=== PATIENT | female | born 1955 | race Caucasian/White ===

== ENCOUNTER 2016-08-01 06:14 | Observation (INO) | payer BC ==
[~2016-08-01] VITALS: Ht 176.5 cm; Wt 91.9 kg
--- NOTE | ~2016-08-01 | OR ---
PATIENT'S NAME: ADRIENNE [facility] AGE: 60 Y [address] ROOM: [address] [address] LOCATION: [facility] ADMIT DATE: 08/01/2016 OR/Procedure Report DISCHARGE DATE: FAMILY PHYSICIAN: Margarito Andrews MD ATTENDING PHYSICIAN: Lisa Farrar SURGEON: Lisa Farrar MD STEEL UNLOADER: Yoli Dean. DATE OF PROCEDURE: 08/01/2016 PREOPERATIVE DIAGNOSIS: Cervical spondylosis with radiculopathy. POSTOPERATIVE DIAGNOSIS: Cervical spondylosis with radiculopathy. PROCEDURES PERFORMED: 1. Anterior cervical diskectomy with decompression of neural elements and foraminotomy at C4-C5. 2. Anterior cervical diskectomy with decompression of neural elements and foraminotomy at C5-C6. 3. Structural allograft and morselized allograft fusion at C4-C5. 4. Structural allograft and morselized allograft fusion at C5-C6. 5. Use of intraoperative microscope. 6. Anterior cervical plating from C4-C6 with Globus plate system. ANESTHESIA: General. ANESTHESIA PROVIDER: Alanna Mustafa M.D. HISTORY: This patient is a 60-year-old female, who presented with neck and right arm pain. Imaging studies showed degenerative disk disease with collapse of disk space at C5-C6 and C4-C5 as well as slight subluxation at C4- C5. Surgery was recommended. The procedure mentioned above along with the benefits and risks were discussed with the patient. With her consent, she was brought to the operating room for surgery. PROCEDURE IN DETAIL: In the operating room, the patient was placed in a supine position. Anesthesia was induced. She was intubated and appropriate support lines were placed. A Gonzalez catheter was inserted. Her head was placed in a gel donut and a roll was placed under her shoulders thereby keeping her neck in slight extension. The incision line was marked out along the anterior border of the sternomastoid muscle. The whole area was then prepped and draped in a sterile fashion. Local anesthesia was infiltrated. A #10 blade was used to open the incision and the platysma was PATIENT'S NAME: ADRIENNE [facility] AGE: 60 Y [address] ROOM: [id number] [place], [place] [id number] LOCATION: [facility] ADMIT DATE: 08/01/2016 OR/Procedure Report DISCHARGE DATE: FAMILY PHYSICIAN: Margarito Andrews MD ATTENDING PHYSICIAN: Lisa Farrar. The anterior border of the sternomastoid muscle became visible. Dissection was continued along the anterior border of the sternomastoid muscle until the omohyoid was visualized. Dissection was then carried out in the space between the omohyoid and sternomastoid muscles, working medial to the internal carotid artery and lateral to the esophagus and trachea until we got to the anterior surface of the cervical spine. The Cloward handheld retractors were used to help visualization as the dissection progressed. The longus colli muscles were dissected off the anterior surface of the spine. The black-belt retractors were then placed with the blades anchored beneath the longus colli muscles that had been dissected off the spine. We could see the anterior osteophytes quite clearly at C4-C5 and C5-C6 corresponding to the severe cervical spondylosis. Intraoperative x-ray was obtained to verify that these levels were correct. Diskectomy was then carried out at both disk spaces. The Leksell rongeur was used to rongeur the anterior osteophytes in order to gain access into the disk space. A 15-blade was then used to incise the disk material and the disk material was pulled out with pituitary rongeur. The C5-C6 disk space was particularly collapsed and some drilling had to be done just to get into the disk space. Distraction pins were placed into C4, C5, and C6 and with these distraction pins, the disk space was opened further. The microscope was brought in at this point and under microscopic vision, diskectomy was deepened until we got to the posterior longitudinal ligament. The posterior longitudinal ligament was opened to expose the dura. The Kerrison rongeur was then used to remove the posterior longitudinal ligament together with posterior osteophytes. There was periodic bleeding from the foraminal areas and this was controlled with fibrillar and cottonoids. Foraminotomy was done bilaterally by removing the osteophytes along the posterior edge of the vertebral body at C4, C5, and C6. I felt we had satisfactory decompression both of the central canal as well as the foramina. Irrigation was used to wash out the debris. The endplates were prepared both at C4-C5 and C5-C6 for bone graft. Appropriate sized allograft bone pieces were then inserted into C4-C5 and C5-C6. These bone graft measured 8 mm in height. Prior to inserting the bone graft, the demineralized bone matrix was placed in the center of the bone grafts. The bone grafts were then inserted and they fit very snugly at both levels. An anterior plate was then used to reinforce the fusion and 2 screws were affixed to C4, C5, and C6. Another x-ray was obtained to confirm that the screws, plates, and grafts were in satisfactory position. Final irrigation PATIENT'S NAME: ADRIENNE [facility] AGE: 60 Y [address] ROOM: [place] [id number] LOCATION: [facility] ADMIT DATE: 08/01/2016 OR/Procedure Report DISCHARGE DATE: FAMILY PHYSICIAN: Margarito Andrews MD ATTENDING PHYSICIAN: Lisa Farrar was carried out. Hemostasis was achieved. The incision was closed in layers using appropriate suture materials. A sterile dressing was applied. The patient's anesthesia was reversed. She was extubated and taken to the recovery room to complete her recovery. I was present at and performed every aspect of this procedure, assisted at some stages by the operating room nurses. There were no apparent intraoperative complications. Swabs, needles, and instruments were all accounted for at the end of the case. Estimated blood loss was less than 150 mL. There was no reason for a blood transfusion. I expect the patient to benefit from this procedure. She will be followed up in the clinic to see how she is doing. LISA FARRAR MD CNO/modl /[id number] d: 08/01/16 2257 t: 08/11/16 1844, OPERATIVE SUMMARY
[~2016-08-01 06:14] MED LIST: AMBIEN5 MG PO; ARMOUR THYROID90 MG PO; ASPIRIN LO-DOSE81 MG PO; B COMPLEX # 11 EACH PO; BENADRYL25 MG PO; CPAP INH; ESTROGEN PO; MAGNESIUM 300300 MG PO; TESTOSTERONE TOP; THERA-VITE W/ B1 TAB PO; TYLENOL PM EX-1 EACH PO; VITAMIN D31000 UNI1 PO; ZIAC 2.5-6.251 EACH PO; [UNRECOGNIZED DRUG - OTHER] PO
[2016-08-01] MEDS ORDERED: MELATONIN10 MG PO (06:49)
[2016-08-01 07:00] LABS: PROTIME 9.9 SECONDS (9.6-11.1)
--- NOTE | 2016-08-01 13:20 | NUR ---
Introduced self/role to patient. Significant other stepped out for an errand. She lives in [facility]. Could not think of any needs at this time. She wondered how long she would be off work? I referred her to ask Dr Mcdonald that when she is discharged. Wrote my name on her marker board.
--- NOTE | 2016-08-01 19:19 | NUR ---
Significant Event: TO ROOM AT 1215...HAD VALIUM AND FENT IN PACU, HAD MORPHINE 2 MG IV AT 1450, AND VALIUM 5 MG 1 TAB AT 1730....CSM GOOD HAND GRASP WEAK BILAT, NECK DRSMercedez D/I, SOFT COLLER ON.. HAD VOIDED AND SAT IN RECLINER DR FARRAR HERE AT 1630.... Follow up:
--- NOTE | 2016-08-02 04:21 | NUR ---
Significant Event: Dressing is clean, dry and intact. CSM WNL. Voids without difficulty. Soft collar on at all times. 1 assist with transfers. Percocet last at 032. CPAP. Morphine last at 2104. Follow up:
--- NOTE | 2016-08-02 16:56 | NUR ---
Pt alert and oriented. She has been up and about room and out ocampo with assist. Soft collar on. Drsg Rt anterior neck dry and intact. CSM upper extremities dry and intact. Pt uses IS at 1000. She has had percocet x2, last at 1435 for neck pain rated at six and headache rated about 5. Pt has teds on. Has 2 IV saline locks. Left hand and Left wrist both flushing well. Pt is high risk FRANNIE> Has her own CPAP she uses. Pt will go home tomorrow.
--- NOTE | 2016-08-03 02:50 | NUR ---
Shift Summary: Patient has been independent in the room. Good pain control with percocet. Wears soft collar at all times. Patient C/O increased pain and difficulty swallowing. Has bilateral weak hand grasps. Plans to go home.
[2016-08-03] MEDS ORDERED: VALIUM5 MG PO (10:14)
[2016-08-03] MEDS ORDERED: PERCOCET 5-3251 EACH PO (10:14)
== END 2016-08-03 10:35 | disposition disaster alternative care site (69) ==
LOC: G3N 06:14 → GSDC 06:14 → G3N 06:15 → GSDC 06:15 → GPOC 11:00 → G3N 12:19 → GPCU 08-02 17:02 → G3N 08-02 17:02 → GPCU 08-02 17:02 → GSDC 08-03 10:35 → GPCU 08-03 10:35
PROVIDERS: ADMIT Neurological Surgery
PROC: 0RG10Z0 (ICD-10-PCS; principal; 2016-08-01)
DX: M47.22 Other spondylosis with radiculopathy, cervical region (principal); M48.02 Spinal stenosis, cervical region; E03.9 Hypothyroidism, unspecified; I10 Essential (primary) hypertension; Z88.0 Allergy status to penicillin; Z88.2 Allergy status to sulfonamides; Z88.8 Allergy status to other drugs, medicaments and biological substances; Z79.82 Long term (current) use of aspirin; Z79.899 Other long term (current) drug therapy
CPT/HCPCS: C1713; J0131; J1100; J2001; J2250; J2270; J2405; J3010; J3360; J3370; J7040; J7120